=== PATIENT | male | born 1980 | race African-American/Black ===

== ENCOUNTER 2017-01-29 14:56 | Emergency (ER) | payer MEDICAID ==
[~2017-01-29] VITALS: Ht 180.3 cm; Wt 112.5 kg
[2017-01-29 16:44] LABS: Basophils # (auto) 0 uL; Basophils % (auto) 0.3 % (0.0-2.0); Eosinophils # (auto) 0.3 uL; Eosinophils % (auto) 2.6 % (0.0-7.0); Hematocrit 43.5 % (41.0-53.0); Hemoglobin 14.6 g/dL (13.5-17.5); Lymphocytes # (auto) 3.5 uL; Mean Corpuscular Hemoglobin 28.9 pg (28.0-32.0); Mean Corpuscular Hgb Conc. 33.6 g/dL (32.0-36.0); Mean Corpuscular Volume 86.1 fL (80.0-100.0); Mean Platelet Volume 7.7 fL (6.9-10.8); Monocytes % (auto) 7.1 % (0.0-12.0); Neutrophils # (auto) 8.7 uL; Nucleated Red Blood Cells % 0.2 %; Platelet Count (auto) 314 10^3/uL (140-450); Red Cell Distribution Width 13.8 % (11.8-14.3); White Blood Cell 13.5 10^3/uL (4.4-10.8)
[2017-01-29 17:07] LABS: Albumin 4.1 g/dL (3.4-5.0); Alkaline Phosphatase 67 U/L (45-117); Anion Gap 7 (5-15); Aspartate Aminotransferase 25 U/L (15-37); BUN/Creatinine Ratio 9.8; Bilirubin, Total 0.4 mg/dL (0.2-1.0); Blood Urea Nitrogen 11 mg/dL (7-18); Calcium 9.2 mg/dL (8.5-10.1); Carbon Dioxide 29 mmol/L (21-32); Chloride 99 mmol/L (98-107); GFR African American 97 mL/min; GFR Non-African American 80 mL/min; Glucose 99 mg/dL (74-106); Magnesium 2.1 mg/dL (1.6-2.6); Potassium 3.8 mmol/L (3.5-5.1); Sodium 135 mmol/L (136-145); Total Protein 8.4 g/dL (6.4-8.2)
[2017-01-29 18:15] VITALS: BP 171/112
== END 2017-01-29 18:30 | disposition home or self-care (01) ==
LOC: ER 15:04
DX: J20.9 Acute bronchitis, unspecified (principal); I10 Essential (primary) hypertension; F17.210 Nicotine dependence, cigarettes, uncomplicated; F12.10 Cannabis abuse, uncomplicated
CPT/HCPCS: 36415; 71020; 80053; 83735; 84484; 85025; 93005